=== PATIENT | female | born 2000 | race African-American/Black ===

== ENCOUNTER 2023-04-27 19:27 | Emergency (ER) | payer OTHER, SELFPAY ==
[2023-04-27] MEDS ORDERED: HYDROcodone/Acetaminophen 5/325 mg Tablet ONE (20:52)
[2023-04-27] MEDS ORDERED: Acetaminophen 500 MG TAB ONE (20:58)
[2023-04-27 21:17] LABS: Pregnancy Test - Urine (BHCG) Negative (Negative); Pregu Control Background? CLEAR/WHITE (CLR/WHITE); Pregu Control Bar Appear? YES (CONTROL BAR)
== END 2023-04-27 22:20 | disposition home or self-care (01) ==
LOC: CSHERS 19:27
DX: S13.4XXA Sprain of ligaments of cervical spine, initial encounter (principal); S09.90XA Unspecified injury of head, initial encounter; M79.652 Pain in left thigh; M79.651 Pain in right thigh; M25.552 Pain in left hip; M25.551 Pain in right hip; E11.9 Type 2 diabetes mellitus without complications; Z79.84 Long term (current) use of oral hypoglycemic drugs; V47.5XXA Car driver injured in collision with fixed or stationary object in traffic accident, initial encounter
CPT/HCPCS: 70450; 72125; 72170; 81025